=== PATIENT | female | born 1980 | race Caucasian/White ===

== ENCOUNTER 2020-06-29 21:12 | Inpatient (IN) | payer BC, OTHER ==
[~2020-06-29] VITALS: Ht 160 cm; Wt 73.5 kg
[2020-06-29 21:18] VITALS: BP 125/84
[2020-06-29 22:12] LABS: URINE BILIRUBIN 3+ (Negative); URINE BLOOD 3+ (Negative); URINE CLARITY SL CLOUDY; URINE COLOR ORANGE; URINE GLUCOSE-RANDOM* NEGATIVE (Negative); URINE KETONES TRACE (Negative); URINE LEUKOCYTES-REFLEX NEGATIVE (Negative); URINE PROTEIN (DIPSTICK) 1+ (Negative); URINE SPECIFIC GRAVITY >= 1.030 (1.005-1.035)
[2020-06-29 22:12] LABS: ABSOLUTE NEUTROPHILS 5.5 thou/uL (1.4-8.2); BASOPHILS 0.5 % (0.0-2.0); EOSINOPHILS 0.3 % (0.0-3.0); HEMOGLOBIN 10.6 gm/dL (12.0-15.0); LYMPHOCYTES 10.1 % (24.0-44.0); MCH 35.2 pg (26.0-34.0); MCV 103.3 fL (80.0-100.0); MONOCYTES 13.1 % (1.0-8.0); PLATELET COUNT 147 thou/uL (150-400); RDW 14.8 % (10.5-14.5); WBC 7.3 thou/uL (4.0-11.0)
[2020-06-29 22:13] LABS: URINE NITRITE-REFLEX POSITIVE (Negative)
[2020-06-29 22:21] LABS: ALBUMIN 2.4 g/dL (3.4-5.0); CALCIUM 8.3 mg/dL (8.5-10.1); CREATININE 0.8 mg/dL (0.6-1.0); MAGNESIUM 1.7 mg/dL (1.8-2.4); TOTAL BILIRUBIN 11.5 mg/dL (0.2-1.0); TOTAL PROTEIN 7.3 g/dL (6.4-8.2)
[2020-06-29 22:27] LABS: POTASSIUM 2.6 mmol/L (3.5-5.1)
[2020-06-29 22:34] LABS: SQUAMOUS 4-10 Moderate /LPF (0-3)
[2020-06-29 22:35] LABS: COARSE GRANULAR CASTS 0-3 Few /LPF (None Seen); CRYSTALS None Seen /LPF (None Seen); HYALINE CASTS 4-10 Moderate /LPF (None Seen); MUCUS 4-6 Moderate strn/LPF (None Seen); URINE WBC-REFLEX 0-5 Rare /HPF (0-5)
[2020-06-30 05:31] LABS: ABSOLUTE NEUTROPHILS 4.6 thou/uL (1.4-8.2); BASOPHILS 0.9 % (0.0-2.0); EOSINOPHILS 0.2 % (0.0-3.0); HEMATOCRIT 26.8 % (37.0-47.0); HEMOGLOBIN 9.6 gm/dL (12.0-15.0); LYMPHOCYTES 13.6 % (24.0-44.0); MCH 36.6 pg (26.0-34.0); MCHC 35.8 g/dL (28.0-37.0); MCV 102.1 fL (80.0-100.0); MONOCYTES 13.6 % (1.0-8.0); PLATELET COUNT 140 thou/uL (150-400); POLYS 71.7 % (36.0-66.0); RBC 2.63 mil/uL (4.20-5.00); RDW 15.4 % (10.5-14.5); WBC 6.4 thou/uL (4.0-11.0)
[2020-06-30 05:46] LABS: APTT 33.3 Seconds (24.5-32.8); INR 1.7; PROTIME 18.4 Seconds (9.3-11.4)
[2020-06-30 05:52] LABS: % SATURATION 66 % (20-39); IRON 61 ug/dL (50-170); TIBC 93 ug/dL (250-450)
[2020-06-30 05:55] LABS: ALBUMIN 2.1 g/dL (3.4-5.0); CALCIUM 7.8 mg/dL (8.5-10.1); CREATININE 0.7 mg/dL (0.6-1.0); MAGNESIUM 2.1 mg/dL (1.8-2.4); POTASSIUM 3.3 mmol/L (3.5-5.1); TOTAL BILIRUBIN 10.4 mg/dL (0.2-1.0); TOTAL PROTEIN 6.5 g/dL (6.4-8.2)
[2020-06-30 06:12] LABS: FOLIC ACID 3.7 ng/mL (8.6-58.9)
[2020-06-30 12:48] VITALS: BP 102/61
--- NOTE | 2020-06-30 13:08 | NUR ---
REPORT REC'D FROM ED NURSERAVI.
[2020-06-30 13:26] VITALS: BP 102/61
[2020-06-30 13:28] VITALS: BP 122/73
[2020-06-30] MEDS ORDERED: LEXAPRO 10 MG T10 M2 PO (13:45)
[2020-06-30] MEDS ORDERED: ZYRTEC10 M4 PO (13:46)
[2020-06-30] MEDS ORDERED: WOMEN'S MULTI200 MCG PO (13:47)
[2020-06-30] MEDS ORDERED: PEPCID AC20 MG PO (13:48)
[2020-06-30 15:38] VITALS: BP 111/65
--- NOTE | 2020-06-30 16:03 | NUR ---
PT TO UNIT 1320. ACCOMPANIED BY SPOUSE. PT WEARS CONTACTS, DOSE NOT HAVE GLASSES. PT DENIES PAIN. ALERT AND ORIENTED.
[2020-06-30 20:04] VITALS: BP 99/65
[2020-07-01 03:05] LABS: HAV IgM AB (ANTI-HAV IgM) Negative (Negative); HEPATITIS B SURFACE AG Negative (Negative); HEPATITIS C VIRUS AB 0.2 (0.0-0.9)
[2020-07-01 04:20] VITALS: BP 106/67
--- NOTE | 2020-07-01 04:31 | NUR ---
Patient making slow progress towards outcome goals. Vital signs and rhythm stable. Gait steady. Up to bathroom without difficulty. Denies pain. Uses call light appropriately for needs.
[2020-07-01 05:17] LABS: HEMOGLOBIN 9.4 gm/dL (12.0-15.0); MCH 35.9 pg (26.0-34.0); MCHC 34.8 g/dL (28.0-37.0); MCV 103.2 fL (80.0-100.0); RBC 2.61 mil/uL (4.20-5.00); RDW 15.8 % (10.5-14.5)
[2020-07-01 05:26] LABS: CALCIUM 7.9 mg/dL (8.5-10.1); CREATININE 0.6 mg/dL (0.6-1.0); POTASSIUM 3.6 mmol/L (3.5-5.1)
[2020-07-01 08:56] VITALS: BP 101/61
[2020-07-01 16:37] VITALS: BP 96/59
[2020-07-01 19:14] VITALS: BP 105/67
--- NOTE | 2020-07-02 04:43 | NUR ---
Patient making slow progress towards outcome goals. Vital signs and rhythm stable. Denies pain. Up adlib without difficulty. NPO after MN . For planned EGD and paracenthesis today. Patient expressed understading of procedure and hopes to get discharged post procedures.
[2020-07-02 05:24] VITALS: BP 99/57
[2020-07-02 07:40] VITALS: BP 101/61
[2020-07-02 10:02] LABS: ABSOLUTE NEUTROPHILS 3.5 thou/uL (1.4-8.2); BASOPHILS 1.6 % (0.0-2.0); EOSINOPHILS 0.8 % (0.0-3.0); HEMATOCRIT 29.1 % (37.0-47.0); HEMOGLOBIN 10.1 gm/dL (12.0-15.0); LYMPHOCYTES 16.2 % (24.0-44.0); MCH 36.1 pg (26.0-34.0); MCHC 34.9 g/dL (28.0-37.0); MCV 103.6 fL (80.0-100.0); MONOCYTES 13.9 % (1.0-8.0); PLATELET COUNT 140 thou/uL (150-400); POLYS 67.5 % (36.0-66.0); RBC 2.81 mil/uL (4.20-5.00); RDW 15.5 % (10.5-14.5); WBC 5.2 thou/uL (4.0-11.0)
[2020-07-02 10:15] LABS: PROTIME 21.3 Seconds (9.3-11.4)
[2020-07-02 10:18] LABS: CREATININE 0.7 mg/dL (0.6-1.0)
[2020-07-02 13:21] VITALS: BP 105/69
[2020-07-02 13:34] LABS: CLARITY CLEAR; COLOR YELLOW; SOURCE ABDOMINAL FLUID; TOTAL VOLUME 55 mL
[2020-07-02 13:49] LABS: BF NUCLEATED CELLS 86 /mm3; BF RBC 127 /mm3
[2020-07-02] MEDS ORDERED: LASIX 40 MG TAB40 M1 PO (14:58)
[2020-07-02] MEDS ORDERED: ALDACTONE50 MG PO (14:58)
[2020-07-02] MEDS ORDERED: PROTONIX40 M4 PO (14:59)
[2020-07-02 15:22] VITALS: BP 101/65
[2020-07-02 15:25] LABS: BF MACROPHAGE 44 %; BF NEUTROPHILS 3 %
[2020-07-02 15:44] VITALS: BP 101/65
[2020-07-02 15:47] LABS: SOURCE ABDOMINAL
[2020-07-03 12:07] LABS: BODY FLUID GLUCOSE 92 mg/dL (())
--- NOTE | 2020-07-03 18:06 | PATH ---
[facility] [address] [place] [address] PATHOLOGY RPT PROCEDURE Name: LUCA CASAS TANIKA Room #: 362-P DIS IN M.R.#: [id number] Admission: 06/29/20 Date of : 80 Discharge: 07/02/20 Report #: [id number] Path Case #: [id number] [facility] Accession Number: [id number] . 01 Material submitted: . gastrointestinal site - BIOPSY ANTRUM . 01 Clinical history: . EGD ANEMIA PORTAL HYPERTENSIVE GASTROPATHY, GASTRITIS R/O H PYLORI . 02 Diagnosis: Gastric mucosa, antrum, rule out H. pylori, endoscopic biopsy: - Mild chronic gastritis. - Negative for intestinal metaplasia or atrophy. - Negative for Helicobacter pylori (properly controlled immunohistochemical stain performed. (IUV:pit 07/03/2020) QTP 07/03/2020 1503 Local . 02 Electronically signed: . Angelika Hinson MD, Pathologist NPI- [id number] . 01 Gross description: . The specimen is received in formalin, labeled "LUCA CASAS, biopsy antrum rule out H. pylori" and consist of 2 fragments of soft romero tissue measuring up to 0.3 cm. Entirely submitted in A1.([facility]; 07/02/2020) MATTHEW/MATTHEW 07/03/2020 1502 Local . 02 Pathologist provided ICD-10: K29.50 . 02 CPT . 861371, S04825 Specimen Comment: A courtesy copy of this report has been sent to [phone] Specimen Comment: [id number] Specimen Comment: Report sent to / DR ANDREW Performed at: [address] [id number] MD Brenden Mistry MD Phone: [phone] Performed at: 02 [facility] [address] [place] [address] PATHOLOGY RPT PROCEDURE Name: LCUA CASAS TANIKA Room #: 362-P DIS IN M.R.#: [id number] Admission: 06/29/20 Date of : 80 Discharge: 07/02/20 Report #: [id number] Path Case #: [id number] [address] [place] [id number] MD Angelika Hinson MD Phone: [phone]
== END 2020-07-02 17:34 | disposition home or self-care (01) | DRG 433 ==
LOC: ER 21:12 → EROBS 23:36 → 3W 23:36
PROVIDERS: Hospitalist; Internal Medicine Gastroenterology; Nurse Practitioner; Nurse Practitioner Family; ADMIT Internal Medicine; ATTEND Internal Medicine
PROC: 0W9G3ZZ Drainage of Peritoneal Cavity, Percutaneous Approach (ICD-10-PCS; principal; 2020-07-02)
PROC: 0DB78ZX Excision of Stomach, Pylorus, Via Natural or Artificial Opening Endoscopic, Diagnostic (ICD-10-PCS; principal; 2020-07-02)
DX: K70.31 Alcoholic cirrhosis of liver with ascites (principal); E44.0 Moderate protein-calorie malnutrition; N39.0 Urinary tract infection, site not specified; K92.1 Melena; Z20.822 Contact with and (suspected) exposure to COVID-19; F41.0 Panic disorder [episodic paroxysmal anxiety]; D64.9 Anemia, unspecified; E87.6 Hypokalemia; Z68.28 Body mass index [BMI] 28.0-28.9, adult
CPT/HCPCS: 10879; 62110; 62900; 70005

== ENCOUNTER 2020-07-19 12:36 | Inpatient (IN) | payer BC, OTHER ==
[~2020-07-19] VITALS: Ht 160 cm; Wt 70.1 kg
[2020-07-19 12:36] VITALS: BP 115/67
[~2020-07-19 12:36] MED LIST: ALDACTONE50 MG PO; LASIX 40 MG TAB40 M1 PO; LEXAPRO 10 MG T10 M2 PO; PEPCID AC20 MG PO; PROTONIX40 M4 PO; WOMEN'S MULTI200 MCG PO; ZYRTEC10 M4 PO
[2020-07-19 13:01] LABS: URINE BILIRUBIN 3+ (Negative); URINE BLOOD 3+ (Negative); URINE CLARITY CLOUDY; URINE COLOR YELLOW; URINE GLUCOSE-RANDOM* TRACE (Negative); URINE KETONES TRACE (Negative); URINE LEUKOCYTES-REFLEX TRACE (Negative); URINE NITRITE-REFLEX NEGATIVE (Negative); URINE PROTEIN (DIPSTICK) TRACE (Negative)
[2020-07-19 13:03] LABS: ICTOTEST (BILI CONFIRMATORY) Positive (Negative)
[2020-07-19 13:15] LABS: SQUAMOUS >10 Many /LPF (0-3)
[2020-07-19 13:19] LABS: CELLULAR CASTS 0-3 Few /LPF (None Seen); COARSE GRANULAR CASTS 0-3 Few /LPF (None Seen)
[2020-07-19 13:20] LABS: BACTERIA-REFLEX >30 Many /HPF (None Seen); CRYSTALS None Seen /LPF (None Seen)
[2020-07-19 13:21] LABS: URINE RBC 3-10 Few /HPF (0-2); URINE WBC-REFLEX 6-15 Few /HPF (0-5)
[2020-07-19 13:23] LABS: ABSOLUTE NEUTROPHILS 10.4 thou/uL (1.4-8.2); BASOPHILS 0.5 % (0.0-2.0); EOSINOPHILS 0.4 % (0.0-3.0); HEMATOCRIT 28.8 % (37.0-47.0); HEMOGLOBIN 10.2 gm/dL (12.0-15.0); LYMPHOCYTES 6.8 % (24.0-44.0); MCH 37.1 pg (26.0-34.0); MCHC 35.5 g/dL (28.0-37.0); MCV 104.4 fL (80.0-100.0); MONOCYTES 10.1 % (1.0-8.0); PLATELET COUNT 170 thou/uL (150-400); POLYS 82.2 % (36.0-66.0); RBC 2.75 mil/uL (4.20-5.00); RDW 15.5 % (10.5-14.5); WBC 12.7 thou/uL (4.0-11.0)
[2020-07-19] MEDS ORDERED: PROTONIX40 M2 PO (13:24)
[2020-07-19] MEDS ORDERED: FUROSEMIDE 40 M40 M1 PO (13:24)
[2020-07-19] MEDS ORDERED: SPIRONOLACTONE50 MG PO (13:25)
[2020-07-19 13:32] LABS: CALCIUM 8.7 mg/dL (8.5-10.1); CREATININE 1.2 mg/dL (0.6-1.0); POTASSIUM 3.1 mmol/L (3.5-5.1)
[2020-07-19 13:48] LABS: INR 1.86; PROTIME 19.7 Seconds (9.3-11.4)
[2020-07-19 14:01] LABS: ALBUMIN 1.8 g/dL (3.4-5.0); DIRECT BILIRUBIN 19.6 mg/dL (<0.1-0.2); TOTAL BILIRUBIN 25.5 mg/dL (0.2-1.0)
[2020-07-19 14:03] LABS: TOTAL PROTEIN 6.7 g/dL (6.4-8.2)
[2020-07-19 15:39] LABS: BF NUCLEATED CELLS 81 /mm3; BF RBC 592 /mm3
[2020-07-19 15:47] LABS: CLARITY CLEAR; COLOR YELLOW; TOTAL VOLUME 60 mL
[2020-07-19 15:48] LABS: SOURCE ASCITES
[2020-07-19 15:50] VITALS: BP 109/67
[2020-07-19 16:22] LABS: BF MACROPHAGE 37 %; BF NEUTROPHILS 7 %
[2020-07-19 16:35] VITALS: BP 108/67
[2020-07-19 16:45] VITALS: BP 108/67
[2020-07-19 18:43] LABS: % SATURATION 134 % (20-39); IRON 98 ug/dL (50-170); TIBC 73 ug/dL (250-450)
--- NOTE | 2020-07-19 18:45 | NUR ---
PT ADMITTED FRON ER FOR ASCITES AND UTI AT 1700PM, PT IS A7OX3, PT IS ON ROOM AIR , PT'S VS ARE STABLE BY THIS TIME, PT HAS 8LBS FLIUD DRAINGE FROM L SIDE ABD , PT DENIES N/V AND PAIN BY THIS TIME.
--- NOTE | 2020-07-19 18:50 | NUR ---
PT'S COVID TEST IS NEGATIVE, RN HAS CALLED ID RN , NO NEED COVID ISOLATION .
[2020-07-19 19:11] VITALS: BP 100/65
[2020-07-20 00:40] VITALS: BP 101/65
[2020-07-20 03:56] VITALS: BP 99/53
[2020-07-20 05:07] LABS: ABSOLUTE NEUTROPHILS 7.6 thou/uL (1.4-8.2); BASOPHILS 0.3 % (0.0-2.0); EOSINOPHILS 0.4 % (0.0-3.0); HEMATOCRIT 24.3 % (37.0-47.0); HEMOGLOBIN 8.7 gm/dL (12.0-15.0); LYMPHOCYTES 8.1 % (24.0-44.0); MCH 37.8 pg (26.0-34.0); MCHC 35.7 g/dL (28.0-37.0); MONOCYTES 10.9 % (1.0-8.0); PLATELET COUNT 130 thou/uL (150-400); POLYS 80.3 % (36.0-66.0); RBC 2.29 mil/uL (4.20-5.00); WBC 9.4 thou/uL (4.0-11.0)
[2020-07-20 05:16] LABS: IgG 1509 mg/dL (586-1602)
[2020-07-20 05:24] LABS: ALBUMIN 1.5 g/dL (3.4-5.0); CALCIUM 8.2 mg/dL (8.5-10.1); CREATININE 1.1 mg/dL (0.6-1.0); MAGNESIUM 1.9 mg/dL (1.8-2.4); POTASSIUM 3.9 mmol/L (3.5-5.1); TOTAL PROTEIN 5.6 g/dL (6.4-8.2)
--- NOTE | 2020-07-20 07:20 | NUR ---
Pt. stated she slept fair during the night. Verbalized breathing is a lot better after paracentesis yesterday. Up ad pedro in room with steady gait. Denies any pain. Voided per bathroom ,dark yellow urine.
[2020-07-20 07:26] VITALS: BP 92/58
[2020-07-20 07:51] LABS: INR 1.9; PROTIME 20.1 Seconds (9.3-11.4)
--- NOTE | 2020-07-20 07:51 | EKG ---
[address] [place] [employer] [address] ELECTROCARDIOGRAM REPORT Name: LUCA CASAS TANIKA Room #: 350-P ADM IN M.R.#: [id number] Admission: 07/19/20 Attend Phys: Carmita Courtney MD Discharge: Date of : 80 Report #: [id number] [facility] ED Test Date: 2020-07-19 Test Time: 13:09:34 Pat Name: LUCA CASAS Department: Room: 350 Gender: F Chemistry Technician: bakari : 1980 Requested By: Barrington Bernabe Order Number: [id number] MD: Harvey Radford Measurements Intervals [place] Rate: 90 P: 9 PA: 147 QRS: 26 QRSD: 75 T: 13 QT: 391 QTc: 479 Interpretive Statements Sinus rhythm Atrial premature complex Nonspecific ST segment abnormality No previous ECG available for comparison Electronically Signed On 07-20-2020 7:50:53 CDT by Harvey Radford [email or web address] <ELECTRONICALLY SIGNED> By: Harvey Radford MD, [facility] 07/20/20 0750 1309 1309 Harvey Radford MD, FACC /EPI
[2020-07-20 10:35] LABS: SOURCE ASCITES
[2020-07-20 15:08] LABS: BODY FLUID ALBUMIN 0.4 g/dL (Not Estab.); BODY FLUID AMYLASE 31 U/L (()); BODY FLUID GLUCOSE 96 mg/dL (()); BODY FLUID LDH 37 IU/L (()); BODY FLUID PROTEIN 0.9 g/dL (())
[2020-07-20 15:16] VITALS: BP 106/64
[2020-07-20 19:16] VITALS: BP 103/65
[2020-07-21 01:06] LABS: HAV IgM AB (ANTI-HAV IgM) Negative (Negative); HEPATITIS B SURFACE AG Negative (Negative); HEPATITIS C VIRUS AB <0.1 (0.0-0.9)
--- NOTE | 2020-07-21 05:36 | NUR ---
resting quietly tonight. denies pain. she state that she thiks that the ascites is accumulating again. she denies that she is on a fluid restriction. she needs eduation regarding watching for weight gain and controlling fluid intake
[2020-07-21 07:17] VITALS: BP 105/62
[2020-07-21 08:07] LABS: CERULOPLASMIN 20.6 mg/dL (19.0-39.0)
[2020-07-21 08:40] LABS: ABSOLUTE NEUTROPHILS 8.3 thou/uL (1.4-8.2); BASOPHILS 0.3 % (0.0-2.0); EOSINOPHILS 0.7 % (0.0-3.0); HEMATOCRIT 24.9 % (37.0-47.0); LYMPHOCYTES 9.8 % (24.0-44.0); MCV 105.7 fL (80.0-100.0); MONOCYTES 10.4 % (1.0-8.0); PLATELET COUNT 138 thou/uL (150-400); POLYS 78.8 % (36.0-66.0); RBC 2.36 mil/uL (4.20-5.00); WBC 10.5 thou/uL (4.0-11.0)
[2020-07-21 09:00] LABS: ALBUMIN 1.5 g/dL (3.4-5.0); CALCIUM 8.3 mg/dL (8.5-10.1); CREATININE 1.1 mg/dL (0.6-1.0); POTASSIUM 3.6 mmol/L (3.5-5.1); TOTAL BILIRUBIN 21.5 mg/dL (0.2-1.0); TOTAL PROTEIN 5.7 g/dL (6.4-8.2)
[2020-07-21 15:12] VITALS: BP 104/65
--- NOTE | 2020-07-21 16:28 | NUR ---
assumed care of pt at 0700. pt aox4 in no acute distress. resting comfortably on room air. at bedside throughout the day. not voicing nay particular concerns or complaints. calls appropriately. up ad pedro w/ steady gait. labs showing improvement. wcm.
[2020-07-21 18:06] LABS: ANA INTERPRETATION Negative (Negative)
[2020-07-21 19:47] VITALS: BP 111/58
--- NOTE | 2020-07-22 03:41 | NUR ---
Patient making slow progress towards outcome goals. Ascitis and jaundice unchanges. Up adlib, gait steady. Denies need for pain medication. Calls our appropriately for needs. Monitoring labs.
[2020-07-22 04:14] VITALS: BP 105/61
[2020-07-22 05:06] LABS: ABSOLUTE NEUTROPHILS 8.7 thou/uL (1.4-8.2); BASOPHILS 0.6 % (0.0-2.0); EOSINOPHILS 0.6 % (0.0-3.0); HEMATOCRIT 24.9 % (37.0-47.0); HEMOGLOBIN 8.9 gm/dL (12.0-15.0); LYMPHOCYTES 9.3 % (24.0-44.0); MCH 37.7 pg (26.0-34.0); MCHC 35.7 g/dL (28.0-37.0); MCV 105.5 fL (80.0-100.0); PLATELET COUNT 137 thou/uL (150-400); POLYS 79.5 % (36.0-66.0); RBC 2.36 mil/uL (4.20-5.00); RDW 14.9 % (10.5-14.5); WBC 10.9 thou/uL (4.0-11.0)
[2020-07-22 05:27] LABS: ALBUMIN 1.4 g/dL (3.4-5.0); CALCIUM 8.3 mg/dL (8.5-10.1); CREATININE 1.1 mg/dL (0.6-1.0); POTASSIUM 3.5 mmol/L (3.5-5.1); TOTAL BILIRUBIN 21.4 mg/dL (0.2-1.0); TOTAL PROTEIN 5.7 g/dL (6.4-8.2)
[2020-07-22 07:25] VITALS: BP 104/59
[2020-07-22 15:46] VITALS: BP 116/65
--- NOTE | 2020-07-22 18:11 | NUR ---
ASSUMED PATIENT CARE AT 0700. A/0 X4. VSS. UP AD LORRIE. WILL HAVE PARACENTISIS TOMORROW. NO BLEEDING NOTED. SLOWLY TOWARDS POC GOALS.
[2020-07-22 19:40] VITALS: BP 108/63
[2020-07-23 04:29] VITALS: BP 108/66
--- NOTE | 2020-07-23 05:54 | NUR ---
SHE IS STEADY ON HER FEET UP TO THE BR. CONTINUES TO RECIEVE ALBUMIN IV. EDUCATED ON THE PURPOSE OF THIS MEDICATION. SHE HAS BEEN NPO SINCE [facility] FOR HER PARACENTSIS THIS AM. SHE IS AWARE THAT SHE SHOULD BE DISCHARGED TODAY. SHE STATED THAT SHE HAS A 1 PM COVID SJOT SCHEDULED TODAY.
[2020-07-23 07:15] VITALS: BP 103/64
[2020-07-23 11:04] LABS: CREATININE 1.5 mg/dL (0.6-1.0); POTASSIUM 3.5 mmol/L (3.5-5.1)
[2020-07-23 11:14] LABS: ALBUMIN 2.8 g/dL (3.4-5.0); DIRECT BILIRUBIN 15.9 mg/dL (<0.1-0.2); TOTAL PROTEIN 6.1 g/dL (6.4-8.2)
[2020-07-23 11:26] LABS: PROTIME 19.1 Seconds (9.3-11.4)
[2020-07-23 11:28] LABS: INR 1.8
[2020-07-23] MEDS ORDERED: VITAMIN B-1100 M2 PO (11:47)
[2020-07-23] MEDS ORDERED: PREDNISONE 20 M20 M1 PO (11:47)
--- NOTE | 2020-07-23 14:42 | NUR ---
INITIAL ASSESSMENT: SW reviewed chart and spoke with nursing and attending physician. Pt was admitted from home due to ascites/jaundice. Pt with hx of liver disease r/t ETOH abuse. Pt had second paracentesis this morning. 4L was removed. Pt is on IV abx. Pt started on IV albumin today. Discharge home is anticipated in 1-2 days. Pt had negative COVID test on 07/19. SW met with pt at bedside. Introduced role of SW. Pt is alert/orientated x 4. Pt reports she lives at home with her . Prior to admission, pt was independent with ADLs. No use of DME. No hx of HH or post-acute placement. 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 Pt was scheduled to have her second Moderna vaccine today. Pt's is in the process of trying to reschedule. Plan is for pt to discharge home when medically stable. SW is following to assist as needed with discharge planning.
[2020-07-23 15:09] VITALS: BP 111/66
--- NOTE | 2020-07-23 16:06 | PATH ---
[facility] [place] [address] PATHOLOGY RPT PROCEDURE Name: LUCA CASAS Room #: 350-P ADM IN M.R.#: [id number] Admission: 07/19/20 Date of : 80 Discharge: Report #: [id number] Path Case #: [id number] Note [facility] Accession Number: [id number] TESTS RESULT FLAG UNITS REF RANGE LAB Clinician Provided Cytology Information No. of containers..01 Other (Miscellaneous) Source: 01 PERITONEAL FLUID DIAGNOSIS: 02 PERITONEAL FLUID NEGATIVE FOR MALIGNANT EPITHELIAL CELLS. REACTIVE MESOTHELIAL CELLS ARE PRESENT. SCANT CELLULARITY. THIS INTERPRETATION INCLUDES EVALUATION OF A CELL BLOCK. COMMENT: Examination shows a scantly cellular specimen. Multiple properly controlled immunohistochemical stains are performed on the FFCB. Scattered rare reactive cells are identified with calretinin and desmin. There are no reactive cells with BerEP4 and B72.3. Findings support a reactive process. History of alcohol use and ascites is gathered from Ms. Miesha Everette. Pathologist ICD10: 02 R18.8 Signed out by: Angelika Hinson MD, Pathologist NPI- [id number] Performed by: Rina Pittman, Assembler Tractor ([facility]) Gross description: 01 15ML, YELLOW, 1TP 1CB /LCS 07/20/2020 0547 Local FLAG LEGEND: L-Low Normal,H-High Normal,LL-Alert Low,HH-Alert High <-Panic Low,>-Panic High,A-Abnormal,AA-Critical Abnormal Performed at: 01 [facility] [address] [place] [address] Brenden Mistry MD, [address] [address] Angelika Hinson MD, Specimen Comment: A courtesy copy of this report has been sent to [phone], [phone] [address] PATHOLOGY RPT PROCEDURE Name: LUCA CASAS TANIKA Room #: 350-P ADM IN M.R.#: [id number] Admission: 07/19/20 Date of : 80 Discharge: Report #: [id number] Path Case #: [id number] Specimen Comment: [id number] Specimen Comment: Report sent to / DR LERMA Specimen Comment: A duplicate report has been generated due to demographic updates. Performed at: 01 [facility] [id number] [facility] [address], [place], [place] [id number] MD Brenden Mistry MD Phone: [phone]
--- NOTE | 2020-07-23 16:16 | NUR ---
assumed care of pt at 0700. pt aox4 in no acute distress. at bedside. 4 bottles albumin administered. pt to stay another night per GI rec - probably d/c tomorrow.
[2020-07-23 19:17] VITALS: BP 111/63
[2020-07-24 04:00] VITALS: BP 113/69
--- NOTE | 2020-07-24 04:15 | NUR ---
Pt. c/o mild headache at HS , ANALOG CIRCUIT DESIGNER notified and order received. Ibuprofen given with good relief. She slept some. Up ad pedro in room with steady gait. Denies being short of breath and stated she can get around easily after paracentesis. Dressing on left side (puncture site) changed due to leakage .Pt. stated she slept on that side. O2 sat in the low 90's in RA , no respiratory distress. Progressing towards discharge goals.
[2020-07-24 06:02] LABS: INR 2.05; PROTIME 21.6 Seconds (9.3-11.4)
[2020-07-24 06:17] LABS: ALBUMIN 4.4 g/dL (3.4-5.0); CALCIUM 8.9 mg/dL (8.5-10.1); CREATININE 1.7 mg/dL (0.6-1.0); POTASSIUM 3.1 mmol/L (3.5-5.1); TOTAL PROTEIN 6.8 g/dL (6.4-8.2)
[2020-07-24 07:58] VITALS: BP 108/70
--- NOTE | 2020-07-24 13:47 | NUR ---
SW reviewed chart and spoke with nursing and attending physician. Discharge cancelled for today due to worsening creatnine. Nephrology consulted. Plan is for pt to discharge home when medically stable. CHARLES is following to assist as needed with discharge planning.
[2020-07-24 15:26] VITALS: BP 114/70
--- NOTE | 2020-07-24 16:52 | NUR ---
CARE ASSUMED AT 0700, PT ALERT AND ORIENTED X4, DENIES ANY PAIN, ANSUEA AND VOMITTING. COMPLAIN ON INTERMITTENT SOB. 2L OF OXYGEN PLACED, PT STATED BREATHING FEELS BETTER. D/C WAS CNACELLED DUE TO INCREASUNG LEVELS OF CREATININE. TURBINE MECHANIC CONSULTED PER GI. PT MADE AWARE. DENIES ANY NEEDS AT THE MOMENT. WILL CONTINUE TO MONITOR
[2020-07-24 18:02] LABS: PROT/CREAT RATIO 0.7; URINE PROTEIN-RANDOM* 67.6 mg/dL (<11.9)
[2020-07-24 20:05] VITALS: BP 117/60
[2020-07-25 05:57] VITALS: BP 107/66
--- NOTE | 2020-07-25 07:18 | NUR ---
Pt. requested med to help with her anxiety. She stated she feels like it's panic attack she's having due to the fact that she finally told her mom about her condition and she's at the hospital. FREE LANCE MODEL notified and one time order for hydroxyzine given with good relief.She stated she got some sleep last night. Up ad pedro in room with steady gait. Maintaining O2 sat in the mid 90's on 2L/NC. Repported bm x 2 this shift and voided per bathroom. Making progress towards care plan goals.
[2020-07-25 07:55] VITALS: BP 113/69
[2020-07-25 10:19] LABS: INR 2.07; PROTIME 21.8 Seconds (9.3-11.4)
[2020-07-25 10:25] LABS: ALBUMIN 4.5 g/dL (3.4-5.0); CALCIUM 9.5 mg/dL (8.5-10.1); PHOSPHORUS 3.2 mg/dL (2.6-4.7)
[2020-07-25 10:30] LABS: POTASSIUM 2.9 mmol/L (3.5-5.1)
[2020-07-25 10:42] LABS: ALBUMIN 4.6 g/dL (3.4-5.0); DIRECT BILIRUBIN 9.3 mg/dL (<0.1-0.2); TOTAL PROTEIN 6.9 g/dL (6.4-8.2)
[2020-07-25 14:14] VITALS: BP 113/69
--- NOTE | 2020-07-25 14:46 | NUR ---
cm spk w/pt re: etoh tx options. pt refused tx options/resources as she has stated, "I've been sober for a month and have been doing very well.
[2020-07-25 15:41] VITALS: BP 121/73
--- NOTE | 2020-07-25 18:18 | NUR ---
CARE ASSUMED THIS MORNING. PT IS ALERT AND ORIENTED X4, ON 1L OF OXYGEN FOR COMFORT. UP AD LORRIE TO BATHROOM. NEW MEDICATION EXPLAINED TO PT. DENIES ANY QUESTIONS JARED. WILL CONTINUE TO MONITOR.
[2020-07-25 19:07] VITALS: BP 116/72
--- NOTE | 2020-07-25 22:11 | NUR ---
PT RESTING IN BED IVF, INTACT. PT PLANS FOR DC IN AM. REMAINS JAUNDICE WITH ASCITES.
[2020-07-26 03:40] VITALS: BP 119/74
[2020-07-26 05:32] LABS: HEMATOCRIT 21.2 % (37.0-47.0); HEMOGLOBIN 7.4 gm/dL (12.0-15.0); MCH 37.9 pg (26.0-34.0); MCHC 34.8 g/dL (28.0-37.0); MCV 108.7 fL (80.0-100.0); RBC 1.95 mil/uL (4.20-5.00); RDW 15.1 % (10.5-14.5); WBC 10.4 thou/uL (4.0-11.0)
[2020-07-26 05:51] LABS: INR 1.9; PROTIME 20.1 Seconds (9.3-11.4)
[2020-07-26 06:20] LABS: ALBUMIN 4.8 g/dL (3.4-5.0); CALCIUM 9.3 mg/dL (8.5-10.1); CREATININE 1.8 mg/dL (0.6-1.0); PHOSPHORUS 2.9 mg/dL (2.5-4.9)
[2020-07-26 06:26] LABS: ALBUMIN 4.9 g/dL (3.4-5.0); DIRECT BILIRUBIN 8.8 mg/dL (<0.1-0.2); POTASSIUM 4.1 mmol/L (3.5-5.1); TOTAL PROTEIN 7.3 g/dL (6.4-8.2)
[2020-07-26 07:22] VITALS: BP 116/67
--- NOTE | 2020-07-26 14:22 | NUR ---
SW reviewed chart and spoke with nursing and attending physician. Pt is on 2L of O2 and IV abx. Pt is on daily IV albumin. Renal is following. Pt has declined ETOH treatment options. Plan is for pt to discharge home when medically stable. CHARLES is following to assist as needed with discharge planning.
[2020-07-26 15:23] VITALS: BP 116/65
--- NOTE | 2020-07-26 17:45 | NUR ---
ASSUMED PATIENT CARE AT 0700. A/O X4. NO N/V. UP AD LORRIE. DENIES PASIN. SLOWLY TOWARDS POC GOALS.
[2020-07-26 19:34] VITALS: BP 122/49
[2020-07-27 03:40] VITALS: BP 104/73
--- NOTE | 2020-07-27 04:00 | NUR ---
Pt. requested sleep med at . CAR AUDIO INSTALLER notified and order received.Trazodone given and stated she slept some. O2 at 2L/NC , no respiratory distress. Up ad pedro in room with steady gait.
[2020-07-27 04:22] LABS: INR 1.77; PROTIME 18.8 Seconds (9.3-11.4)
[2020-07-27 04:44] LABS: ALBUMIN 4.6 g/dL (3.4-5.0); CALCIUM 9.6 mg/dL (8.5-10.1); CREATININE 1.8 mg/dL (0.6-1.0); PHOSPHORUS 3.6 mg/dL (2.5-4.9)
[2020-07-27 04:58] LABS: ALBUMIN 4.6 g/dL (3.4-5.0); DIRECT BILIRUBIN 9.3 mg/dL (<0.1-0.2); TOTAL PROTEIN 6.8 g/dL (6.4-8.2)
[2020-07-27 07:21] VITALS: BP 119/68
[2020-07-27 14:34] LABS: ALBUMIN 4.6 g/dL (3.4-5.0); CALCIUM 9.6 mg/dL (8.5-10.1); CREATININE 1.6 mg/dL (0.6-1.0); PHOSPHORUS 3.2 mg/dL (2.6-4.7); POTASSIUM 3.5 mmol/L (3.5-5.1)
--- NOTE | 2020-07-27 14:47 | NUR ---
SW reviewed chart and spoke with nursing and attending physician. Pt is progressing towards goals for discharge. Pt is on 1L of O2. Discharge home is anticipated for tomorrow. CHARLES discussed case with GI ACROBATIC RIGGER regarding ETOH treatment and follow up at [facility] or [facility] for consideration for their liver transplant program. CHARLES met with pt at bedside to discuss discharge and follow up care. Pt must be 6-12 months sober in order to be considered for a transplant program. Pt states she has been 1 month sober and is motivated to stay sober in order to qualify for the transplant program. SW provided pt with information for the [facility] and [facility] transplant programs and info for outpatient ETOH treatment ([facility] and list of treatment programs from [facility] website). Pt states that she will review the info and contact [facility] later today or on Thursday. Pt reports that she will likely contact AA after discharge. Pt feels that she will be able to stay sober with the help of AA. Contact number for AA placed in pt's discharge summary. No additional SW needs identified at this time, but is available to assist should needs arise.
[2020-07-27 15:14] VITALS: BP 127/64
--- NOTE | 2020-07-27 16:23 | NUR ---
PATIENT HAD PARACENTESIS IN AM. 1L FLIUD MOVED. SOB WITH EXERTION. SLOWLY TOWARDS POC GOALS.
[2020-07-27 19:27] VITALS: BP 140/82
--- NOTE | 2020-07-28 03:37 | NUR ---
Pt. stated she slept well during the night and feels good this am. Tolerating room air well. Denies any concern at this time. Making progress towards care plan goals.
[2020-07-28 04:38] VITALS: BP 126/66
[2020-07-28 07:13] VITALS: BP 121/69
[2020-07-28 15:17] VITALS: BP 130/71
--- NOTE | 2020-07-28 17:35 | NUR ---
assumed patient care at 0700. no distress noted. slowly towards poc goals.
[2020-07-28 20:03] VITALS: BP 128/61
[2020-07-29 03:24] VITALS: BP 119/69
[2020-07-29 05:01] LABS: INR 1.84; PROTIME 19.5 Seconds (9.3-11.4)
[2020-07-29 05:31] LABS: ALBUMIN 3.7 g/dL (3.4-5.0); CALCIUM 9.4 mg/dL (8.5-10.1); CREATININE 1.2 mg/dL (0.6-1.0); POTASSIUM 3.6 mmol/L (3.5-5.1); TOTAL PROTEIN 6.1 g/dL (6.4-8.2)
[2020-07-29 05:32] LABS: TOTAL BILIRUBIN 15.2 mg/dL (0.2-1.0)
--- NOTE | 2020-07-29 05:41 | NUR ---
Patient making sloe progress towards outcome goals. Labs trending down, am labs pending. Up adlib without difficulty. Vital signs and rhythm stable.
[2020-07-29 07:15] VITALS: BP 124/71
--- NOTE | 2020-07-29 12:18 | NUR ---
ASSUMED PATIENT CARE AT 0700. NO DISTRESS NOTED. DC TO HOME NOW.
== END 2020-07-29 12:38 | disposition home or self-care (01) | DRG 871 ==
LOC: ER 12:36 → 3W 14:48 → EROBS 14:48 → 3W 16:28
PROVIDERS: Hospitalist; Internal Medicine Gastroenterology; Internal Medicine Nephrology; Nurse Practitioner; ADMIT Hospitalist; ATTEND Hospitalist
PROC: 0W9G3ZZ Drainage of Peritoneal Cavity, Percutaneous Approach (ICD-10-PCS; 2020-07-19)
PROC: 0W9G3ZZ Drainage of Peritoneal Cavity, Percutaneous Approach (ICD-10-PCS; principal; 2020-07-23)
PROC: 0W9G3ZZ Drainage of Peritoneal Cavity, Percutaneous Approach (ICD-10-PCS; 2020-07-27)
DX: A41.9 Sepsis, unspecified organism (principal); E43 Unspecified severe protein-calorie malnutrition; N39.0 Urinary tract infection, site not specified; N17.9 Acute kidney failure, unspecified; I85.00 Esophageal varices without bleeding; E87.1 Hypo-osmolality and hyponatremia; F41.9 Anxiety disorder, unspecified; E87.6 Hypokalemia; R53.81 Other malaise; K70.11 Alcoholic hepatitis with ascites; K72.90 Hepatic failure, unspecified without coma; K70.31 Alcoholic cirrhosis of liver with ascites; D53.9 Nutritional anemia, unspecified; F10.10 Alcohol abuse, uncomplicated; Y90.9 Presence of alcohol in blood, level not specified; N18.31 Chronic kidney disease, stage 3a; Z20.822 Contact with and (suspected) exposure to COVID-19; Z79.899 Other long term (current) drug therapy; Z68.27 Body mass index [BMI] 27.0-27.9, adult
CPT/HCPCS: 10879